=== PATIENT | female | born 1985 | race Caucasian/White ===

== ENCOUNTER 2020-04-28 14:57 | Emergency (ER) | payer BC ==
[~2020-04-28] VITALS: Ht 162.6 cm; Wt 49.9 kg
== END 2020-04-28 19:35 | disposition home or self-care (01) ==
LOC: ER 14:57
DX: J06.9 Acute upper respiratory infection, unspecified (principal); B96.0 Mycoplasma pneumoniae [M. pneumoniae] as the cause of diseases classified elsewhere; Z03.818 Encounter for observation for suspected exposure to other biological agents ruled out

== ENCOUNTER 2023-07-04 17:39 | Emergency (ER) | payer OTHER ==
[~2023-07-04] VITALS: Ht 162.6 cm; Wt 56.7 kg
[2023-07-04] MEDS ORDERED: CEFTRIAXONE SODIUM 1,000 MG VIAL IM ONE (20:30)
== END 2023-07-04 21:51 | disposition home or self-care (01) ==
LOC: ER 17:39
DX: J02.0 Streptococcal pharyngitis (principal)

== ENCOUNTER 2024-11-15 07:36 | Emergency (ER) | payer OTHER ==
[~2024-11-15] VITALS: Ht 162.6 cm; Wt 54.4 kg
[2024-11-15] MEDS ORDERED: SERTRALINE HCL50 MG PO (08:06)
[2024-11-15] MEDS ORDERED: KETOROLAC TROMETHAMINE 60 MG VIAL IM STA (08:51)
[2024-11-15] MEDS ORDERED: ORPHENADRINE CITRATE 30 MG/ML AMPUL IM STA (08:51)
== END 2024-11-15 09:31 | disposition home or self-care (01) ==
LOC: ER 07:47
DX: M62.830 Muscle spasm of back (principal)